=== PATIENT | female | born 1930 | race Caucasian/White ===

== ENCOUNTER 2016-11-09 04:16 | Inpatient (IN) | payer OTHER ==
[~2016-11-09] VITALS: Ht 157.5 cm; Wt 64.4 kg
[2016-11-09] VITALS (18 sets, daily range): BP systolic 111–164; BP diastolic 54–79
--- NOTE | ~2016-11-09 | S ---
[facility] [place] [address] SURGICAL PATH RPT PROCEDURE Name: ERICKA MIRANDA Room #: 203-P DIS IN M.R.#: [id number] Admission: 11/09/16 Date of : 34 Discharge: 11/15/16 Report #: [id number] Path Case #: [id number] PATHOLOGY REPORT COLLECTION DATE: 11/12/2016 RECEIVED DATE: 11/16/2016 SUBMITTING PHYS: Dr. Najma Baum OTHER PHYS: Dr. Marylou Mays SPECIMEN(S) RECEIVED: A.Peripheral smear * * * * * * * * * * * * FINAL DIAGNOSIS: Peripheral blood smear: - Moderate normocytic anemia and mild thrombocytopenia (see comment). COMMENT: Overall the peripheral blood has moderate normocytic anemia and mild thrombocytopenia. The WBC and differential are within the normal reference ranges. The etiology of the findings is unclear based entirely on slide review. Potential causes of normocytic anemia include anemia of chronic disease, treated and/or compensated vitamin and mineral deficiencies, acute blood loss, and dilutional. Potential caused of thrombocytopenia include immune and nonimmune platelet destruction, drug and/or toxic exposures, acute blood loos and primary bone marrow disorders. Correlation with clinical history and additional laboratory data is recommended. (CLW:all; d/t: 11/16-02/2017) PATHOLOGIST: Luz Alvarez M.D. REPORT ELECTRONICALLY SIGNED BY: Luz Alvarez M.D. DATE/TIME: 11/17/2016 08:38 * * * * * * * * * * * * MICROSCOPIC DESCRIPTION: CBC Data (11/12/16): WBC 6,500/uL, RBC 2.82, Hgb 9.0 g/dL, Hct 26.3%, MCV 93.2 fl, MCH 31.7 pg, MCHC 34.0 g/dL, RDW 14.8%, and platelet count 107 K/uL. [facility] [address] [place] [address] SURGICAL PATH RPT PROCEDURE Name: ERICKA MIRANDA Room #: 203-P [facility] IN R.#: [id number] Admission: 11/09/16 Date of : 32 Discharge: 11/15/16 Report #: [id number] Path Case #: [id number] Automated white white blood cell differential: segs 74.5%, ymphs 16.1%, monos 7.8%, eos 1.1%, and baso 0.5%. Peripheral Blood Smear: Cytomorphological examination of the Lee's stained peripheral blood smear confirms the provided data. Red blood cells show moderate normocytic anemia with no significant anisopoikilocytosis. No schistocytes or microspherocytes are seen. White blood cells are predominantly segmented neutrophils and are without significant dyspoiesis or significant left shift. Occasional hypersegmented neutrophils are noted. Lymphocytes are predominantly small, round and mature appearing with condensed chromatin and scant cytoplasm and admixed large granular lymphocytes. Monocytes are mature. Platelets are adequate (mildly decreased) in number and mainly normal in morphology with rare larger platelets noted. CLINICAL HISTORY: 86-year-old woman with anemia and thrombocytopenia. Morphologic review of the peripheral blood smear is requested by the patient's physician. INITIAL CPT CODE(S): A; [place] Professional services performed by [employer] at [facility], [address] [place] [address]. Technical services performed by [employer] at [address] [place] [address], [address], [place] [address]. [facility] [address] [place] [address] PHONE: [phone] DIRECTOR: Pramod Maynard M.D. * * * END OF REPORT * * *
--- NOTE | ~2016-11-09 | HC ---
[facility] [place] [address] CONSULTATION Name: ERICKA MIRANDA Room #: 203-P ADM IN M.R.#: [id number] Admission: 11/09/16 Attend Phys: George Cavazos MD Discharge: Date of : 32 Report #: [id number] THIS REPORT FOR: //name// CC: NOHEMI physician/PCP George Cavazos DATE OF ADMISSION: 11/09/2016 DATE OF CONSULTATION: 11/10/2016 REASON FOR CONSULTATION: Renal insufficiency and respiratory distress in this diabetic patient post-myocardial infarction. HISTORY OF PRESENT ILLNESS: This 86-year-old female has a longstanding history of diabetes mellitus and hypertension. She has known chronic kidney disease with a baseline creatinine in the upper 1 range. She was transferred from [facility] after developing acute chest pain with findings of myocardial infarction. She was taken emergently to the catheterization laboratory where she underwent percutaneous intervention with placement of a drug-eluting stent. Her cardiac function and respiratory issues improved significantly immediately following the procedure. She is seen in the CCU on BiPAP with limited inability to communicate due to ongoing respiratory distress. PAST MEDICAL HISTORY: Remarkable as described above for longstanding hypertension, diabetes mellitus and hypothyroidism. PAST SURGICAL HISTORY: She is status post cataract extraction. MEDICATIONS: On admission include lisinopril 20 mg daily, diltiazem extended release 300 mg daily, aspirin 81 mg daily, Actos 15 mg daily, Imdur 30 mg daily, methimazole 5 mg daily. PERSONAL AND SOCIAL HISTORY: The patient does not use substances and has never smoked. She does use occasional social alcohol. FAMILY HISTORY: Negative for renal disease. REVIEW OF SYSTEMS: Remarkable as described in the history of present illness for dyspnea at rest. She had chest pain. She denies nausea, vomiting, diarrhea or constipation. PHYSICAL EXAMINATION: GENERAL: Reveals a well-developed, well-nourished female who is in moderate respiratory distress at this time. VITAL SIGNS: Blood pressure 153/88, pulse 100, temperature 37.3. SKIN: Warm and dry. There is 1+ edema of the lower extremities bilaterally. There is no clubbing or cyanosis present. There is no adenopathy present. [facility] [address] [place] [address] CONSULTATION Name: ERICKA MIRANDA Room #: 203-P ADM IN M.R.#: [id number] Admission: 11/09/16 Attend Phys: George Cavazos MD Discharge: Date of : 32 Report #: [id number] HEENT: The head is normocephalic and atraumatic. The sclerae are white. There is full range of extraocular motion. NECK: Supple. LUNGS: Rai reveal coarse rhonchi and wheezes bilaterally. CARDIAC: Reveals a regular rate and rhythm without rub. ABDOMEN: Soft and nontender without palpable mass or organomegaly. NEUROLOGIC: Reveals the patient to be lethargic, but arousable. She communicates somewhat, but this is limited by her BiPAP status. DIAGNOSTIC STUDIES: Available at the time of consultation, sodium 136, potassium 4.7, chloride 100, CO2 23, BUN 34, creatinine 2.4, glucose 191, albumin 3.2. White blood cell count 9700, hemoglobin 10.5, hematocrit 32.1, platelet count 152,000. Urinalysis specific gravity 1.025, pH 5, 2+ protein, 3+ blood. A chest x-ray revealed bilateral pulmonary vascular congestion with interstitial pulmonary infiltrates consistent with interstitial pulmonary edema. ASSESSMENT: 1. Acute kidney injury in the setting of longstanding diabetes mellitus and underlying chronic kidney disease. 2. Acute respiratory distress with pulmonary edema in the setting of myocardial infarction. 3. Coronary artery disease status post percutaneous intervention with stent placement. 4. Hypertension. 5. Anemia. PLAN: The patient is very ill at this time. I will initiate a Lasix drip. We will follow her closely in view of the required contrast administration in the setting of significant underlying diabetic nephropathy. She may progress to needing dialysis support transiently to get her through this acute event. Please see orders. <ELECTRONICALLY SIGNED> By: Kyle Garcia MD 11/11/16 1349 0811 1045 Kyle Garcia MD /nt
--- NOTE | ~2016-11-09 | H ---
[facility] [place] [address] HISTORY AND PHYSICAL Name: ERICKA MIRANDA Room #: 203-P [facility] IN M.R.#: [id number] Admission: 11/09/16 Attend Phys: George Cavazos MD Discharge: 11/15/16 Date of : 32 Report #: [id number] THIS REPORT FOR: //name// CC: NOHEMI physician/PCP Jignesh Greene DATE OF SERVICE: 11/09/2016 HISTORY OF PRESENT ILLNESS: An 86-year-old female transferred here from [facility]. She apparently went in there with some progressive dyspnea and shortness of breath. She lives independently in a senior center. It looks like she does not have documented cardiac history but does have a history of hypertension and hypercholesterolemia. This is somewhat of an emergency, I am not able to obtain a lot of records here having progressive shortness of breath, tachycardia and borderline hypotension. We are going to proceed emergently to the catheterization lab, some equivocal EKG changes. LABORATORY DATA: From [facility], H and H is 11 and 34, creatinine is 2.0, INR is 0.9. Chest x-ray shows evidence of heart failure, potassium 4.4, creatinine 2.0, BUN 23, troponin 1.08, which is positive. BNP was 1863. Lipase was normal. HOME MEDICATIONS: Baby aspirin, diltiazem 300 mg, isosorbide dinitrate 5 mg b.i.d., Zestril 40 mg, methimazole, metformin, pioglitazone, Actos, metformin combination 15-850 once a day. PAST MEDICAL HISTORY: Positive for hypertension, suspected hypercholesterolemia, diabetes and DJD. PAST SURGICAL HISTORY: Cholecystectomy and possible . SOCIAL HISTORY: She is , 2 children, lives independently. No alcohol or tobacco. FAMILY HISTORY: Not obtainable at this point. REVIEW OF SYSTEMS: Really not obtainable except for the progressive shortness of breath and dyspnea. PHYSICAL EXAMINATION: VITAL SIGNS: Blood pressure initially was 140/62, pulse 100. GENERAL: She was complaining of chest pain, shortness of breath. 6L of oxygen was on. HEENT: Eyes show arcus senilis, no xanthoma, pharynx is clear. NECK: Shows preserved upstrokes. There was evidence of some mild JVD. LUNGS: , crackles in the bases, diminished throughout. [facility] [address] [place] [address] HISTORY AND PHYSICAL Name: ERICKA MIRANDA Room #: 203-P [facility] IN M.R.#: [id number] Admission: 11/09/16 Attend Phys: George Cavazos MD Discharge: 11/15/16 Date of : 32 Report #: [id number] CARDIOVASCULAR: Tachycardic S1, S2 distant. ABDOMEN: Soft, nontender. EXTREMITIES: Reveal trace of edema. Distal pulses intact. NEUROLOGIC: Nonfocal. SKIN: Warm and dry without xanthoma or ulcer. MUSCULOSKELETAL: No gross joint deformity, generalized arthritic changes are noted. ASSESSMENT: 1. Acute onset dyspnea, shortness of breath, non-ST elevation myocardial infarction. 2. Suspected ischemic cardiomyopathy. 3. Hypertension. 4. Diabetes. 5. Hypercholesterolemia. 6. Degenerative joint disease. RECOMMENDATIONS AND PLAN: IV Lasix, O2 supplement, taken emergent to the catheterization lab for intervention, this has been discussed with the patient, there is no family otherwise currently present. We will discuss with them in addition. <ELECTRONICALLY SIGNED> By: Tha Zapata MD, FACC 11/24/16 0936 0827 1021 Tha Zapata MD, FACC /nt
--- NOTE | ~2016-11-09 | EKG ---
[address] [address] ELECTROCARDIOGRAM REPORT Name: RUBENERICKA Room #: 203-P ADM IN M.R.#: [id number] Admission: 11/09/16 Attend Phys: George Cavazos MD Discharge: Date of : 32 Report #: [id number] THIS REPORT FOR: //name// [facility] Test Date: 2016-11-09 Test Time: 06:29:13 Pat Name: ERICKA MIRANDA Department: Room: 203 P Gender: F Site Supervisor: . : 1930 Requested By: Marylou Grimaldo Order Number: [id number] MD: Wolf Gaines Measurements Intervals [place] Rate: 101 P: 130 UT: 221 QRS: 1 QRSD: 112 T: 9 QT: 355 QTc: 461 Interpretive Statements Sinus tachycardia Prolonged UT interval Probable anterolateral infarct, acute No previous ECG available for comparison Electronically Signed On 11-11-2016 16:11:39 OPERATIONS RESEARCH MANAGER by Wolf Gaines [email or web address] <ELECTRONICALLY SIGNED> By: Wolf Gaines MD 11/11/16 1611 8 8 Wolf Gaines MD /MERVAT
--- NOTE | ~2016-11-09 | EKG ---
[address] [address] ELECTROCARDIOGRAM REPORT Name: RUBENERICKA Room #: 203-P ADM IN M.R.#: [id number] Admission: 11/09/16 Attend Phys: George Cavazos MD Discharge: Date of : 32 Report #: [id number] THIS REPORT FOR: //name// [facility] Test Date: 2016-11-09 Test Time: 12:46:44 Pat Name: ERICKA MIRANDA Department: Room: 203 P Gender: F Business Process Engineer: moriah : 1930 Requested By: Tha Zapata Order Number: [id number] MD: Wolf Gaines Measurements Intervals [place] Rate: 102 P: 87 HI: 213 QRS: 12 QRSD: 96 T: -2 QT: 338 QTc: 441 Interpretive Statements Sinus tachycardia Borderline prolonged HI interval No previous ECG available for comparison Electronically Signed On 11-12-2016 10:40:44 MOBILITY ENGINEER by Wolf Gaines [email or web address] <ELECTRONICALLY SIGNED> By: Wolf Gaines MD 11/12/16 1040 1246 1246 Wolf Gaines MD /MERVAT
--- NOTE | ~2016-11-09 | 2DMMODE ---
[facility] [place] [address] 2 D/M-MODE ECHOCARDIOGRAM Name: ERICKA MIRANDA Room #: 203-P [facility] IN ..#: [id number] Admission: 11/09/16 Attend Phys: Jignesh Greene MD Discharge: Date of : 32 Date of Service: 11/10/16 1232 Report #: [id number] THIS REPORT FOR: //name// Transthoracic Echocardiography Ordering physician: Zo Richter Referring physician: Zo Richter Student Liaison Officer: BRENDA Birmingham Indications/History: CHF, Dyspnea, HTN, HLP, DM. BP: 151 / HR: 98bpm Height: 62in Weight: 144.7lb 91 Study data: M-mode, complete 2D, complete spectral Doppler, and color Doppler. Location: Bedside. Routine. Image quality was good. 2D measurements Normal Normal LVID ED 49.9mm 36-57 IVS ED 12.8mm 6-11 LVID ES 42.4mm 23-40 LVPW ED 11.1mm 6-11 LA volume 93ml/m2 16-28 AoRoot diam 30.3mm 21-37 index ED LVOT diameter 18mm 18-23 Findings: Left ventricle: The cavity size was normal. Wall thickness was at the upper limits of normal. Systolic function was severely reduced. The estimated ejection fraction was in the range of 20% to 25%. Regional wall motion abnormalities: Akinesis of the apical myocardium; severe hypokinesis of the apical septal and apical lateral myocardium; hypokinesis of the mid-apical anterior, mid anteroseptal, mid inferoseptal, mid-apical inferior, mid inferolateral, and mid anterolateral myocardium. Right ventricle: The cavity size was normal. Systolic function was normal. Right atrium: The atrium was dilated. Left atrium: The atrium was dilated. Volume index: 93ml/m2 [facility] [address] [place] [address] 2 D/M-MODE ECHOCARDIOGRAM Name: ERICKA MIRANDA Room #: 203-P ADM IN Jojo#: [id number] Admission: 11/09/16 Attend Phys: Jignesh Greene MD Discharge: Date of : 32 Date of Service: 11/10/16 1232 Report #: [id number] (S). Aortic valve: Trileaflet; mildly thickened, mildly calcified leaflets. Doppler: There was no stenosis. Trivial regurgitation. Peak velocity: 103.7cm/s (S). Mitral valve: Mildly calcified annulus. Doppler: There was no evidence for stenosis. Mild to moderate regurgitation. Peak E-wave velocity: 124.7cm/s. Peak gradient: 6.2mm Hg (D). Peak A-wave velocity: 117.1cm/s. Tricuspid valve: Structurally normal valve. Doppler: There was no evidence for stenosis. Mild regurgitation. Regurgitant peak velocity: 313.7cm/s. Peak RV-RA gradient: 39mm Hg (S). Pulmonic valve: Structurally normal valve. Doppler: There was no evidence for stenosis. No regurgitation. Pericardium: There was no pericardial effusion. Aorta: Aortic root: The aortic root was normal in size. Pulmonary artery: Systolic pressure was estimated to be 49mm Hg. Diastolic function: The study is not technically sufficient to allow evaluation of LV diastolic function. Systemic veins: Inferior vena cava: The vessel was dilated; the respirophasic diameter changes were blunted (< 50%). Conclusions 1. Left ventricle: Systolic function was severely reduced. The estimated ejection fraction was in the range of 20% to 25%. 2. Regional wall motion abnormality: Akinesis of the apical myocardium; severe hypokinesis of the apical septal and apical lateral myocardium; hypokinesis of the mid-apical anterior, mid anteroseptal, mid inferoseptal, mid-apical inferior, mid inferolateral, and mid anterolateral myocardium. 3. Right atrium: The atrium was dilated. 4. Left atrium: The atrium was dilated. 5. Aortic valve: Trileaflet; mildly thickened, mildly calcified leaflets. Trivial regurgitation. 6. Mitral valve: Mildly calcified annulus. Mild to moderate regurgitation. 7. Tricuspid valve: Mild regurgitation. 8. Pulmonary arteries: Systolic pressure was estimated to be 49mm Hg. [facility] [address] [place] [address] 2 D/M-MODE ECHOCARDIOGRAM Name: ERICKA MIRANDA Room #: 203-P [facility] IN .R.#: [id number] Admission: 11/09/16 Attend Phys: Jignesh Greene MD Discharge: Date of : 32 Date of Service: 11/10/16 1232 Report #: [id number] 9. Inferior vena cava: The vessel was dilated; the respirophasic diameter changes were blunted (< 50%). <ELECTRONICALLY SIGNED> By: Narciso Arias MD 11/10/16 1531 1232 1531 Narciso Arias MD /edwin
--- NOTE | ~2016-11-09 | CATHLAB ---
[facility] [address] [place] [address] INVASIVE PROCEDURE REPORT Name: ERICKA MIRANDA Room #: 203-P [facility] IN M.R.#: [id number] Admission: 11/09/16 Attend Phys: Katlyn Hobbs Discharge: 11/15/16 Date of : 32 Date of Service: 11/09/16 0832 Report #: [id number] THIS REPORT FOR: //name// CC: NOHEMI physician/PCP Jignesh Greene PROCEDURES: Left ventriculography, coronary angiography, PTCA stent of OM, attempted RCA PTCA aborted. DESCRIPTION OF PROCEDURE: The patient brought to the catheterization lab in acute dyspnea, shortness of breath. The right groin was prepped and draped in a sterile manner, non-STEMI. A 6-Belarusian sheath in the right femoral artery. Straight pigtail catheter from a single [place] ventriculogram. FL4 left coronary system, FR4 right coronary system, multiple views and obliques were taken. The culprit here was a large second OM branch, which was subtotally occluded with slightly slow flow. Significant calcification noted throughout coronary tree. Moderate LAD disease, mild left main disease, the ostial right has an at least 60-70% ostial lesion and a mid vessel focal high grade calcified lesion in the dominant vessel, although this does not appear to be the culprit. I utilized the 3.5 EBU guide and 1.4 loose wire, 2.5 balloon initially with some difficulty I was able to cross that circumflex OM and dilate this subtotaled segment and then the area proximal to that. I then exchanged over the wired magnet for a 2.5, had some wiring difficulties. A 2.5 x 12 Resolute drug-eluting stent, which had some difficulty delivering, but eventually was able to deliver with replacement rewiring of the system. Heparin and Integrilin boluses were given relatively low dose of both. She markedly improved after the dilatation of the circumflex OM. I then deployed that stent up to 2.8 mm in size, yielding 0% residual and GÉNESIS grade 3 flow. I elected to at least evaluate this right coronary artery lesion. JR4 guide, 1.4 loose, with difficulty, I was able to wire, but not even able to deliver a 2.0 balloon across the mid vessel subtotaled segment. There is a mid to inferior apical hypokinetic segment; I am not sure how acute this is, but she is markedly improved with dilatation of the circumflex, so I am going to abort this at this point. Also tried to conserve her renal function with her creatinine of 2. We will come back to address this at a later date if necessarily. Heart rate is improved and hemodynamics have improved. She is pain free at this time. Vascular sheath was securely removed in the holding area. HEMODYNAMICS: Aortic 156/70, LV 160/18. IMPRESSION: 1. Successful percutaneous transluminal coronary angioplasty stent of the culprit vessel which was a high grade subtotaled large circumflex obtuse marginal 2 vessel, proximal placement of a 2.5 x 14 Resolute drug-eluting stent to 2.75 to 2.8 mm GÉNESIS grade 3 flow. 2. Mild left main disease. 3. Moderate left anterior descending artery disease calcified. [facility] [address] [place] [address] INVASIVE PROCEDURE REPORT Name: ERICKA MIRANDA Room #: 203-P DIS IN M.R.#: [id number] Admission: 11/09/16 Attend Phys: Katlyn Hobbs Discharge: 11/15/16 Date of : 32 Date of Service: 11/09/16 0832 Report #: [id number] 4. Dominant right with an ostial lesion of 70% and a midvessel lesion, which is high grade and a high grade calcified, very focal area of calcium, may potentially; this is a dominant vessel, may address at a later date she clinically improves. 5. Normal left ventricular size with anterior apical and mid to inferior apical wall hypokinesis, EF 40-45%. RECOMMENDATIONS: We will continue aggressive risk factor modification, dual antiplatelet therapy, remove the vascular sheath in the holding area, and in the CCU she is improved, but still guarded condition here, we will discuss with the family. <ELECTRONICALLY SIGNED> By: Tha Zapata MD, FACC 11/24/16 0935 0832 53 Tha Zapata MD, FACC /nt
--- NOTE | ~2016-11-09 | EKG ---
[address] [address] ELECTROCARDIOGRAM REPORT Name: RUBENERICKA Room #: 203-P ADM IN M.R.#: [id number] Admission: 11/09/16 Attend Phys: George Cavazos MD Discharge: Date of : 32 Report #: [id number] THIS REPORT FOR: //name// [facility] Test Date: 2016-11-09 Test Time: 22:31:59 Pat Name: ERICKA MIRANDA Department: Room: 203 P Gender: F Registered Nurse Post Partum: . : 1930 Requested By: Tha Zapata Order Number: [id number] MD: Wolf Gaines Measurements Intervals [place] Rate: 94 P: 70 TX: 208 QRS: 48 QRSD: 106 T: -43 QT: 383 QTc: 479 Interpretive Statements Sinus rhythm Borderline prolonged [place] interval Electronically Signed On 11-12-2016 10:46:52 ICING MIXER by Wolf Gaines [email or web address] <ELECTRONICALLY SIGNED> By: Wolf Gaines MD 11/12/16 1046 2231 2231 Wolf Gaines MD /MERVAT
[2016-11-09] MEDS ORDERED: DILTIAZEM ER300 M1 PO (05:06)
[2016-11-09] MEDS ORDERED: LISINOPRIL20 MG PO (05:06)
[2016-11-09] MEDS ORDERED: ASPIR 8181 MG PO (05:07)
[2016-11-09] MEDS ORDERED: PIOGLITAZONE15 MG (05:08)
[2016-11-09] MEDS ORDERED: IMDUR 30 MG TAB30 M1 PO (05:10)
[2016-11-09] MEDS ORDERED: METHIMAZOLE5 MG PO (05:11)
[2016-11-09 12:58] LABS: CALCIUM 9.5 mg/dL (8.5-10.1); CREATININE 2.1 mg/dL (0.6-1.3)
[2016-11-09 13:00] LABS: TROPONIN-I 15.6 ng/mL (<0.04-0.07)
[2016-11-09 13:31] LABS: ABG SAMPLE TYPE ARTERIAL; BE(vivo) -1.2 mmol/L (-2 to +3); HCO3 24.8 mmol/L (22.0-26.0); LACTATE 1.76 mmol/L (0.5-2.0); O2(CT) 14.2 mL/dL (15.0-23.0); O2Hb 95.5 % (92.0-98.0); PCO2 47.3 mmHg (35.0-45.0); PO2 85.1 mmHg (80.0-100.0); pH 7.338 (7.360-7.450); sO2 95.8 % (92.0-98.0); tCO2 26.3 mmol/L (24.0-30.0)
[2016-11-09 13:32] LABS: STICK SITE L.RADIAL
[2016-11-09 22:42] LABS: ABG SAMPLE TYPE ARTERIAL; BE(vivo) -8.7 mmol/L (-2 to +3); HCO3 22.4 mmol/L (22.0-26.0); LACTATE 2.43 mmol/L (0.5-2.0); O2(CT) 14.4 mL/dL (15.0-23.0); O2Hb 89.3 % (92.0-98.0); PCO2 79.9 mmHg (35.0-45.0); PO2 75.5 mmHg (80.0-100.0); STICK SITE L.BRACHIAL; pH 7.066 (7.360-7.450); sO2 87.9 % (92.0-98.0); tCO2 24.9 mmol/L (24.0-30.0)
[2016-11-09 23:44] LABS: ABG SAMPLE TYPE ARTERIAL; BE(vivo) -6.8 mmol/L (-2 to +3); HCO3 20.8 mmol/L (22.0-26.0); LACTATE 4.19 mmol/L (0.5-2.0); O2(CT) 13.8 mL/dL (15.0-23.0); PCO2 51.4 mmHg (35.0-45.0); PO2 70.5 mmHg (80.0-100.0); pH 7.226 (7.360-7.450); sO2 90.8 % (92.0-98.0); tCO2 22.4 mmol/L (24.0-30.0)
[2016-11-09 23:45] LABS: Pressure Support 10 cm H20; STICK SITE L.BRACHIAL
[2016-11-10 01:13] VITALS: BP 128/76
[2016-11-10 01:54] LABS: HEMATOCRIT 32.1 % (37.0-47.0); HEMOGLOBIN 10.5 gm/dL (12.0-15.0); MCH 31.7 pg (26.0-34.0); MCHC 32.8 % (28.0-37.0); MCV 96.6 fL (80.0-100.0); PLATELET COUNT 152 thou/uL (150-400); RBC 3.32 mil/uL (4.20-5.00); WBC 9.7 thou/uL (4.0-11.0)
[2016-11-10 01:58] LABS: MANUAL DIFF YES
[2016-11-10 02:16] LABS: ALBUMIN 3.2 g/dL (3.4-5.0); CALCIUM 9.2 mg/dL (8.5-10.1); CREATININE 2.4 mg/dL (0.6-1.3); POTASSIUM 4.7 mmol/L (3.5-5.1); TOTAL BILIRUBIN 0.3 mg/dL (<0.1-1.0); TOTAL PROTEIN 6.7 g/dL (6.4-8.2); TROPONIN-I 25.71 ng/mL (<0.04-0.07)
[2016-11-10 02:37] LABS: ABSOLUTE NEUTROPHILS 9.1 thou/uL (1.4-8.2); TOTAL CELL COUNT 100
[2016-11-10 03:47] VITALS: BP 141/81
[2016-11-10 07:18] VITALS: BP 153/88
[2016-11-10 09:51] LABS: URINE BILIRUBIN NEGATIVE (Negative); URINE BLOOD 3+ (Negative); URINE COLOR YELLOW; URINE GLUCOSE-RANDOM* NEGATIVE (Negative); URINE KETONES NEGATIVE (Negative); URINE NITRITE NEGATIVE (Negative); URINE PROTEIN (DIPSTICK) 2+ (Negative); URINE SPECIFIC GRAVITY 1.025 (1.003-1.035); URINE UROBILINOGEN 0.2 E.U./dl (0.2-1.0)
[2016-11-10 09:59] LABS: BACTERIA None Seen /HPF (None Seen); HYALINE CASTS 0-3 Few /LPF (None Seen); SQUAMOUS 0-3 Few /LPF (0-3); URINE WBC 0-5 Rare /HPF (0-5)
[2016-11-10 10:00] LABS: CRYSTALS None Seen /LPF (None Seen)
[2016-11-10 11:33] VITALS: BP 151/91
[2016-11-10 12:00] LABS: ABG SAMPLE TYPE ARTERIAL; BE(vivo) -1.9 mmol/L (-2 to +3); HCO3 23.1 mmol/L (22.0-26.0); LACTATE 1.44 mmol/L (0.5-2.0); O2(CT) 15.2 mL/dL (15.0-23.0); O2Hb 97.7 % (92.0-98.0); PCO2 40.2 mmHg (35.0-45.0); PO2 122.5 mmHg (80.0-100.0); pH 7.377 (7.360-7.450); sO2 98.4 % (92.0-98.0); tCO2 24.3 mmol/L (24.0-30.0)
[2016-11-10 12:01] LABS: Pressure Support 16 cm H20; STICK SITE R.BRACHIAL
[2016-11-10 16:45] VITALS: BP 151/89
[2016-11-10 19:40] VITALS: BP 119/67
[2016-11-10 23:08] LABS: URINE PROTEIN-RANDOM* 102.9 mg/dL (Not Estab.)
[2016-11-11 03:07] VITALS: BP 135/71
[2016-11-11 03:42] LABS: ABSOLUTE NEUTROPHILS 10.3 thou/uL (1.4-8.2); BASOPHILS 0.3 % (0.0-2.0); HEMATOCRIT 28.7 % (37.0-47.0); HEMOGLOBIN 9.7 gm/dL (12.0-15.0); LYMPHOCYTES 10.4 % (24.0-44.0); MCH 31.4 pg (26.0-34.0); MCHC 33.6 % (28.0-37.0); MCV 93.3 fL (80.0-100.0); MONOCYTES 7.6 % (1.0-8.0); PLATELET COUNT 120 thou/uL (150-400); POLYS 81.7 % (36.0-66.0); RBC 3.08 mil/uL (4.20-5.00); WBC 12.6 thou/uL (4.0-11.0)
[2016-11-11 04:07] LABS: ALBUMIN 2.9 g/dL (3.4-5.0); CALCIUM 8.9 mg/dL (8.5-10.1); CREATININE 2.8 mg/dL (0.6-1.3); POTASSIUM 4.9 mmol/L (3.5-5.1); TOTAL BILIRUBIN 0.3 mg/dL (<0.1-1.0)
[2016-11-11 04:51] LABS: MANUAL DIFF NO
[2016-11-11 06:13] LABS: LARGE PLATELETS FEW
[2016-11-11 06:14] LABS: ANISOCYTOSIS 1+
[2016-11-11 07:40] VITALS: BP 143/81
[2016-11-11 11:49] VITALS: BP 121/63
[2016-11-11 16:42] VITALS: BP 135/68
[2016-11-11 19:33] VITALS: BP 88/47
[2016-11-11 23:19] VITALS: BP 95/50
[2016-11-12 02:16] VITALS: BP 110/63
[2016-11-12 05:03] LABS: HEMATOCRIT 25.5 % (37.0-47.0); HEMOGLOBIN 8.5 gm/dL (12.0-15.0); MCH 31.7 pg (26.0-34.0); MCHC 33.4 % (28.0-37.0); RBC 2.68 mil/uL (4.20-5.00); RDW 14.9 % (10.5-14.5); WBC 7.8 thou/uL (4.0-11.0)
[2016-11-12 05:20] LABS: ALBUMIN 2.5 g/dL (3.4-5.0); CREATININE 2.7 mg/dL (0.6-1.3); PHOSPHORUS 4.3 mg/dL (2.5-4.9)
[2016-11-12 05:22] LABS: POTASSIUM 3.8 mmol/L (3.5-5.1)
[2016-11-12 07:37] VITALS: BP 120/60
[2016-11-12 10:54] VITALS: BP 102/52
[2016-11-12 15:04] VITALS: BP 102/52
[2016-11-12 17:14] VITALS: BP 119/55
[2016-11-12 18:16] LABS: APTT 25.7 Seconds (24.5-32.8); INR 1.1; PROTIME 11.2 Seconds (9.3-11.4)
[2016-11-12 19:50] VITALS: BP 111/51
[2016-11-13 04:07] VITALS: BP 107/57
[2016-11-13 06:35] LABS: ABSOLUTE NEUTROPHILS 5.3 thou/uL (1.4-8.2); BASOPHILS 0.3 % (0.0-2.0); EOSINOPHILS 1.8 % (0.0-3.0); HEMATOCRIT 26.6 % (37.0-47.0); LYMPHOCYTES 15.1 % (24.0-44.0); MANUAL DIFF NO; MCH 31.5 pg (26.0-34.0); MCHC 33.8 % (28.0-37.0); MCV 93.4 fL (80.0-100.0); MONOCYTES 7.3 % (1.0-8.0); PLATELET COUNT 115 thou/uL (150-400); POLYS 75.5 % (36.0-66.0); RBC 2.85 mil/uL (4.20-5.00); RDW 14.8 % (10.5-14.5)
[2016-11-13 06:44] LABS: CREATININE 2.6 mg/dL (0.6-1.3); POTASSIUM 3.8 mmol/L (3.5-5.1)
[2016-11-13 07:25] VITALS: BP 136/64
[2016-11-13 11:06] LABS: % SATURATION 13 % (15-55); IRON 32 ug/dL (27-139); TIBC 244 ug/dL (250-450); UIBC 212 ug/dL (118-369)
[2016-11-13 12:08] LABS: TSH 4.19 uIU/mL (0.450-4.500)
[2016-11-13 12:40] VITALS: BP 119/58
[2016-11-13 13:10] LABS: FOLIC ACID 9.3 ng/mL (>3.0)
[2016-11-13 16:23] VITALS: BP 141/66
[2016-11-13 20:08] VITALS: BP 158/64
[2016-11-14 03:08] VITALS: BP 149/65
[2016-11-14 04:06] LABS: ABSOLUTE NEUTROPHILS 4.4 thou/uL (1.4-8.2); BASOPHILS 0.2 % (0.0-2.0); EOSINOPHILS 2.9 % (0.0-3.0); HEMATOCRIT 26.8 % (37.0-47.0); MCH 31.7 pg (26.0-34.0); MCHC 33.5 % (28.0-37.0); MCV 94.5 fL (80.0-100.0); MONOCYTES 8.1 % (1.0-8.0); PLATELET COUNT 121 thou/uL (150-400); POLYS 70.8 % (36.0-66.0); RBC 2.84 mil/uL (4.20-5.00); RDW 14.8 % (10.5-14.5); WBC 6.2 thou/uL (4.0-11.0)
[2016-11-14 04:16] LABS: MANUAL DIFF NO
[2016-11-14 05:28] LABS: ALBUMIN 2.6 g/dL (3.4-5.0); CALCIUM 8.1 mg/dL (8.5-10.1); CREATININE 2.3 mg/dL (0.6-1.3); TOTAL BILIRUBIN 0.3 mg/dL (<0.1-1.0); TOTAL PROTEIN 5.5 g/dL (6.4-8.2)
[2016-11-14 12:08] VITALS: BP 151/69
[2016-11-14 19:40] VITALS: BP 144/78
[2016-11-15 03:15] LABS: ALBUMIN 2.6 g/dL (3.4-5.0); CALCIUM 8.6 mg/dL (8.5-10.1); CREATININE 1.9 mg/dL (0.6-1.3); POTASSIUM 4.4 mmol/L (3.5-5.1)
[2016-11-15 04:30] VITALS: BP 153/69
[2016-11-15 07:40] VITALS: BP 174/78
[2016-11-15] MEDS ORDERED: AUGMENTIN 500-1 EACH PO (08:45)
[2016-11-15] MEDS ORDERED: CLOPIDOGREL75 MG PO (08:45)
[2016-11-15] MEDS ORDERED: CARVEDILOL3.125 MG PO (08:46)
[2016-11-15] MEDS ORDERED: ATORVASTATIN CA40 MG PO (08:46)
[2016-11-15] MEDS ORDERED: LISINOPRIL2.5 MG PO (08:47)
[2016-11-15 08:59] VITALS: BP 102/52
[2016-11-15 13:02] VITALS: BP 102/52
[2016-11-16 14:07] LABS: KAPPA FREE LIGHT CHAINS 22.13 mg/L (3.30-19.40); KAPPA/LAMBDA RATIO 1.89 (0.26-1.65); LAMBDA FREE LIGHT CHAINS 11.74 mg/L (5.71-26.30)
[2016-11-16 16:11] LABS: c-ANCA <1:20 titer (Neg:<1:20); p-ANCA <1:20 titer (Neg:<1:20)
== END 2016-11-15 10:58 | disposition home health service (06) | DRG 246 ==
LOC: 2N 04:16
PROVIDERS: Hospitalist; Internal Medicine; Internal Medicine Cardiovascular Disease; Internal Medicine Hematology & Oncology; Internal Medicine Nephrology; Internal Medicine Pulmonary Disease; Nurse Practitioner; Nurse Practitioner Adult Health; Nurse Practitioner Family
PROC: B2151ZZ Fluoroscopy of Left Heart using Low Osmolar Contrast (ICD-10-PCS; principal; 2016-11-09)
PROC: 027035Z Dilation of Coronary Artery, One Artery with Two Drug-eluting Intraluminal Devices, Percutaneous Approach (ICD-10-PCS; 2016-11-09)
PROC: 4A023N7 Measurement of Cardiac Sampling and Pressure, Left Heart, Percutaneous Approach (ICD-10-PCS; 2016-11-09)
PROC: 5A09457 Assistance with Respiratory Ventilation, 24-96 Consecutive Hours, Continuous Positive Airway Pressure (ICD-10-PCS; 2016-11-11)
DX: I21.4 Non-ST elevation (NSTEMI) myocardial infarction (principal); J96.01 Acute respiratory failure with hypoxia; I50.41 Acute combined systolic (congestive) and diastolic (congestive) heart failure; J96.02 Acute respiratory failure with hypercapnia; N17.9 Acute kidney failure, unspecified; E03.9 Hypothyroidism, unspecified; D64.9 Anemia, unspecified; I25.10 Atherosclerotic heart disease of native coronary artery without angina pectoris; E78.00 Pure hypercholesterolemia, unspecified; M19.90 Unspecified osteoarthritis, unspecified site; I24.9 Acute ischemic heart disease, unspecified; I27.2 Other secondary pulmonary hypertension; E78.5 Hyperlipidemia, unspecified; E11.21 Type 2 diabetes mellitus with diabetic nephropathy; I12.9 Hypertensive chronic kidney disease with stage 1 through stage 4 chronic kidney disease, or unspecified chronic kidney disease; N18.9 Chronic kidney disease, unspecified; E11.22 Type 2 diabetes mellitus with diabetic chronic kidney disease; Z79.82 Long term (current) use of aspirin; Z90.49 Acquired absence of other specified parts of digestive tract; Z98.49 Cataract extraction status, unspecified eye; Z79.899 Other long term (current) drug therapy
CPT/HCPCS: 10081

== ENCOUNTER 2016-11-19 01:25 | Inpatient (IN) | payer OTHER ==
[2016-11-19] VITALS (7 sets, daily range): BP systolic 98–175; BP diastolic 45–73
[~2016-11-19] VITALS: Ht 157.5 cm; Wt 64.9 kg
--- NOTE | ~2016-11-19 | HC ---
[facility] [place] [address] CONSULTATION Name: ERICKA MIRANDA Room #: [facility] IN M.R.#: [id number] Admission: 11/19/16 Attend Phys: Remington Jalloh MD Discharge: 11/22/16 Date of : 34 Report #: [id number] THIS REPORT FOR: //name// CC: GILBERT Jalloh CARDIOLOGY CONSULTATION HISTORY OF PRESENT ILLNESS: An 86-year-old female, known to myself. Admitted with some progressive shortness of breath and dyspnea. She had a non-STEMI and taken to the catheterization lab back at the end of October, actually 2 weeks ago. Had a stent placed to a circumflex OM branch. There was a high-grade RCA, but it was extensively calcified and I did attempt quickly to limit the contrast to the right coronary artery. That had been probably present for quite some time and I could not cross that extensively large calcified rock pile in the mid vessel of the RCA. Believing that this played much of a role, she has been home on relatively aggressive fluid and sodium restriction, but apparently went home without a diuretic. The patient had been taking Coreg 3.125 b.i.d., baby aspirin, Plavix and lisinopril 2.5. She is accompanied by her daughter who has been keeping a close eye on her. She denies any chest pain. There are no EKG changes associated. She received IV Lasix in the emergency room. The chest x-ray does reveal atelectasis, possible right lower lobe pneumonia and increased vascularization. The EKG is sinus with PACs and nonspecific changes. The ejection fraction was 20%-25% last 2 weeks ago. I do not expect there has been much improvement there. The patient also had been on Imdur 30, methimazole 5, Actos 15 and a baby aspirin. Went home on Augmentin b.i.d. and I believe, those have run out. PAST MEDICAL HISTORY: Positive for CAD, ischemic cardiomyopathy, hypertension, COPD, DJD, hyperthyroidism, cholecystectomy, , chronic kidney disease and diabetes. ALLERGIES: No known drug allergies. SOCIAL HISTORY: She is . She is accompanied by her daughter. She is still trying to live independently. FAMILY HISTORY: Negative for premature coronary disease. REVIEW OF SYSTEMS: Essentially negative, except for stated above. LABORATORY DATA: Sodium 141, potassium 4.4 and creatinine 1.7. It is actually better than she left. Troponin is 0.56. This is not indicative of STEMI. This maybe well left over from what previously happened. BNP was 29,527. Hemoglobin 8.7, hematocrit 26.5 and white count 5.1. PHYSICAL EXAMINATION: [facility] [address] [place] [address] CONSULTATION Name: ERICKA MIRANDA Room #: 450-P [facility] IN M.R.#: [id number] Admission: 11/19/16 Attend Phys: Remington Jalloh MD Discharge: 11/22/16 Date of : 32 Report #: [id number] GENERAL: She is pleasant and alert. She is slightly hard of hearing. She is accompanied by her daughter. She is in no distress currently. VITAL SIGNS: Pulse 80s, blood pressure 140/64. HEENT: Eyes reveal no xanthelasmas or arcus senilis. Pharynx is clear. NECK: Shows preserved upstrokes. Trace of JVD is noted. LUNGS: Coarse, prolonged expiratory phase, diminished in the right base. CARDIAC EXAMINATION: Regular rate and rhythm, S1, S2. Distant heart tones. ABDOMEN: Soft and nontender. No rebound. EXTREMITIES: Reveal trace of edema, some mild venous stasis. NEUROLOGIC: Nonfocal. SKIN: Warm and dry, without xanthoma or ulcer. MUSCULOSKELETAL: Generalized arthritic changes. I did not ambulate her. ASSESSMENT: 1. Idoku-bz-otunquo systolic heart failure. 2. Moderately severe ischemic cardiomyopathy of 20%-25%. 3. Coronary artery disease with recent circumflex obtuse marginal stent and right coronary artery subtotally occluded and not amenable to intervention (currently pain-free). 4. Hypertension. 5. Hypercholesterolemia. 6. Chronic kidney disease. RECOMMENDATIONS AND PLAN: We will restart Coreg, lisinopril, aspirin, Plavix and Imdur 30. I will defer diabetic management to primary. I will also initiate 40 of IV Lasix b.i.d. A.m. lab. We will add 12.5 mg of Aldactone. I have discussed the plan with the patient and daughter. Obviously, fluid and sodium restriction will need to be even controlled here, but I would also make sure that we discharge her on a diuretic. We will follow with you. Thank you for asking me to assist in the care of this patient. <ELECTRONICALLY SIGNED> By: Tha Zapata MD, FACC 11/24/16 0936 [id number] Tha Zapata MD, FACC /nt
--- NOTE | ~2016-11-19 | EKG ---
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 : 1930 Requested By: Beba Yi Order Number: [id number] MD: Wolf Gaines Measurements Intervals [place] Rate: 93 P: 46 [place]: 179 QRS: 21 QRSD: 111 T: 164 QT: 358 QTc: 446 Interpretive Statements Sinus rhythm Atrial premature complex Probable left atrial enlargement LVH with secondary repolarization abnormality Anterior infarct, old Baseline wander in lead(s) V3,V6 Electronically Signed On 11-19-2016 8:28:14 FUEL CELL DESIGNER by Wolf Gaines [email or web address] <ELECTRONICALLY SIGNED> By: Wolf Gaines MD 11/19/16 0828 0133 0133 Wolf Gaines MD /EPI
[~2016-11-19 01:25] MED LIST: ASPIR 8181 MG PO; ATORVASTATIN CA40 MG PO; AUGMENTIN 500-1 EACH PO; CARVEDILOL3.125 MG PO; CLOPIDOGREL75 MG PO; DILTIAZEM ER300 M1 PO; IMDUR 30 MG TAB30 M1 PO; LISINOPRIL2.5 MG PO; LISINOPRIL20 MG PO; METHIMAZOLE5 MG PO; PIOGLITAZONE15 MG
[2016-11-19 03:26] LABS: ABG SAMPLE TYPE ARTERIAL; BE(vivo) 1.3 mmol/L (-2 to +3); HCO3 27.4 mmol/L (22.0-26.0); LACTATE 1.03 mmol/L (0.5-2.0); O2(CT) 12.7 mL/dL (15.0-23.0); O2Hb 94.1 % (92.0-98.0); PCO2 50.6 mmHg (35.0-45.0); PO2 77.2 mmHg (80.0-100.0); pH 7.351 (7.360-7.450); sO2 94.7 % (92.0-98.0); tCO2 28.9 mmol/L (24.0-30.0)
[2016-11-19 03:27] LABS: Pressure Support 8 cm H20; STICK SITE R.RADIAL
[2016-11-19 03:38] LABS: HEMATOCRIT 26.5 % (37.0-47.0); HEMOGLOBIN 8.7 gm/dL (12.0-15.0); MCH 31.1 pg (26.0-34.0); MCHC 32.7 % (28.0-37.0); MCV 94.9 fL (80.0-100.0); PLATELET COUNT 128 thou/uL (150-400); RBC 2.79 mil/uL (4.20-5.00); WBC 5.1 thou/uL (4.0-11.0)
[2016-11-19 03:39] LABS: CALCIUM 8.4 mg/dL (8.5-10.1); CREATININE 1.7 mg/dL (0.6-1.3); POTASSIUM 4.4 mmol/L (3.5-5.1)
[2016-11-19 03:41] LABS: MANUAL DIFF YES
[2016-11-19 03:54] LABS: TROPONIN-I 0.56 ng/mL (<0.04-0.07)
[2016-11-19 04:31] LABS: ABSOLUTE NEUTROPHILS 4.1 thou/uL (1.4-8.2); ANISOCYTOSIS SLIGHT; ATYPICAL LYMPHS 1 %; LARGE PLATELETS RARE; TOTAL CELL COUNT 100
[2016-11-20 03:10] VITALS: BP 154/51
[2016-11-20 04:41] LABS: HEMATOCRIT 23.8 % (37.0-47.0); HEMOGLOBIN 7.9 gm/dL (12.0-15.0); MCH 31.4 pg (26.0-34.0); MCHC 33.1 % (28.0-37.0); PLATELET COUNT 116 thou/uL (150-400); RBC 2.51 mil/uL (4.20-5.00); RDW 14.8 % (10.5-14.5)
[2016-11-20 04:44] LABS: ALBUMIN 2.4 g/dL (3.4-5.0); CALCIUM 8.3 mg/dL (8.5-10.1); CREATININE 1.8 mg/dL (0.6-1.3); POTASSIUM 4.2 mmol/L (3.5-5.1); TOTAL BILIRUBIN 0.5 mg/dL (<0.1-1.0); TOTAL PROTEIN 5.1 g/dL (6.4-8.2)
[2016-11-20 04:53] LABS: MANUAL DIFF YES
[2016-11-20 05:50] LABS: ABSOLUTE NEUTROPHILS 2.7 thou/uL (1.4-8.2); LARGE PLATELETS RARE; METAMYELOCYTES 1 %; TOTAL CELL COUNT 100
[2016-11-20 07:56] VITALS: BP 151/57
[2016-11-20 17:08] VITALS: BP 142/45
[2016-11-20 19:19] VITALS: BP 139/45
[2016-11-21 03:58] VITALS: BP 158/48
[2016-11-21 05:46] LABS: CALCIUM 8.5 mg/dL (8.5-10.1); CREATININE 1.7 mg/dL (0.6-1.3); POTASSIUM 3.7 mmol/L (3.5-5.1)
[2016-11-21 05:47] LABS: HEMATOCRIT 23.3 % (37.0-47.0); HEMOGLOBIN 7.9 gm/dL (12.0-15.0); MCH 31.6 pg (26.0-34.0); MCHC 34.1 % (28.0-37.0); MCV 92.7 fL (80.0-100.0); RBC 2.51 mil/uL (4.20-5.00); RDW 14.9 % (10.5-14.5)
[2016-11-21 07:43] VITALS: BP 145/50
[2016-11-21 11:50] VITALS: BP 142/40
[2016-11-21 16:23] VITALS: BP 157/54
[2016-11-21 20:00] VITALS: BP 146/48
[2016-11-22 04:00] VITALS: BP 162/51
[2016-11-22 07:26] LABS: ABSOLUTE NEUTROPHILS 3.4 thou/uL (1.4-8.2); BASOPHILS 0.6 % (0.0-2.0); EOSINOPHILS 1.7 % (0.0-3.0); HEMOGLOBIN 8.5 gm/dL (12.0-15.0); LYMPHOCYTES 24.7 % (24.0-44.0); MCH 31.2 pg (26.0-34.0); MCV 91.9 fL (80.0-100.0); MONOCYTES 11.1 % (1.0-8.0); PLATELET COUNT 136 thou/uL (150-400); POLYS 61.9 % (36.0-66.0); RBC 2.72 mil/uL (4.20-5.00); RDW 14.6 % (10.5-14.5); WBC 5.4 thou/uL (4.0-11.0)
[2016-11-22 07:28] LABS: MANUAL DIFF NO
[2016-11-22 07:44] LABS: ALBUMIN 2.6 g/dL (3.4-5.0); CALCIUM 8.4 mg/dL (8.5-10.1); CREATININE 1.6 mg/dL (0.6-1.3); POTASSIUM 3.7 mmol/L (3.5-5.1); TOTAL BILIRUBIN 0.3 mg/dL (<0.1-1.0); TOTAL PROTEIN 5.7 g/dL (6.4-8.2)
[2016-11-22 08:00] VITALS: BP 158/73
[2016-11-22] MEDS ORDERED: TAMIFLU30 MG PO (09:40)
[2016-11-22] MEDS ORDERED: ALDACTONE25 MG PO (09:40)
[2016-11-22 11:08] VITALS: BP 139/55
[2016-11-22 11:11] VITALS: BP 139/55
== END 2016-11-22 13:37 | disposition home health service (06) | DRG 291 ==
LOC: ER 01:25 → 4W 03:42 → EROBS 03:42 → 4W 05:30
PROVIDERS: Emergency Medicine; Family Medicine; Nurse Practitioner Family; Nurse Practitioner Gerontology
PROC: 5A09357 Assistance with Respiratory Ventilation, Less than 24 Consecutive Hours, Continuous Positive Airway Pressure (ICD-10-PCS; principal; 2016-11-19)
DX: I50.23 Acute on chronic systolic (congestive) heart failure (principal); J18.9 Pneumonia, unspecified organism; J96.01 Acute respiratory failure with hypoxia; J09.X1 Influenza due to identified novel influenza A virus with pneumonia; I13.0 Hypertensive heart and chronic kidney disease with heart failure and stage 1 through stage 4 chronic kidney disease, or unspecified chronic kidney disease; N17.9 Acute kidney failure, unspecified; N18.9 Chronic kidney disease, unspecified; E11.22 Type 2 diabetes mellitus with diabetic chronic kidney disease; J44.9 Chronic obstructive pulmonary disease, unspecified; I25.5 Ischemic cardiomyopathy; R35.8 Other polyuria; I25.10 Atherosclerotic heart disease of native coronary artery without angina pectoris; E78.5 Hyperlipidemia, unspecified; E05.90 Thyrotoxicosis, unspecified without thyrotoxic crisis or storm; E11.649 Type 2 diabetes mellitus with hypoglycemia without coma; M19.90 Unspecified osteoarthritis, unspecified site; E78.00 Pure hypercholesterolemia, unspecified; D64.9 Anemia, unspecified; Z98.49 Cataract extraction status, unspecified eye; Z79.899 Other long term (current) drug therapy; Z79.82 Long term (current) use of aspirin; Z95.5 Presence of coronary angioplasty implant and graft; I25.2 Old myocardial infarction; Z79.02 Long term (current) use of antithrombotics/antiplatelets; Z90.49 Acquired absence of other specified parts of digestive tract; Z79.2 Long term (current) use of antibiotics; Z82.49 Family history of ischemic heart disease and other diseases of the circulatory system
CPT/HCPCS: 10045

== ENCOUNTER 2021-01-21 06:27 | Inpatient (IN) | payer OTHER ==
[~2021-01-21] VITALS: Ht 157.5 cm; Wt 58.3 kg
[~2021-01-21 06:27] MED LIST changes: +ALDACTONE25 MG PO; +TAMIFLU30 MG PO
--- NOTE | 2021-01-21 09:41 | NUR ---
PT ORIENTED TO ROOM AND UNIT, BED LOW AND LOCKED, SIDE RAILS UPX3, CALL LIGHT IN REACH, TELE APPLIED AND DR. KRAUSE NOTIFIED. PT IN ENHANCED PRECAUTIONS. WILL CONTINUE TO ASSESS.
[2021-01-21] MEDS ORDERED: LISINOPRIL5 MG PO (10:44)
[2021-01-21] MEDS ORDERED: IMDUR 30 MG TAB30 M1 PO (10:47)
[2021-01-21 11:58] LABS: HEMATOCRIT 39.8 % (37.0-47.0); HEMOGLOBIN 12.7 gm/dL (12.0-15.0); MCH 31.5 pg (26.0-34.0); MCHC 31.9 g/dL (28.0-37.0); MCV 98.7 fL (80.0-100.0); RBC 4.03 mil/uL (4.20-5.00); RDW 15.2 % (10.5-14.5); WBC 10.2 thou/uL (4.0-11.0)
[2021-01-21 12:08] LABS: CALCIUM 9.6 mg/dL (8.5-10.1); CREATININE 3.6 mg/dL (0.6-1.0); POTASSIUM 5.6 mmol/L (3.5-5.1)
[2021-01-21 12:14] LABS: ALBUMIN 3.2 g/dL (3.4-5.0); TOTAL BILIRUBIN 0.4 mg/dL (0.2-1.0); TOTAL PROTEIN 7.2 g/dL (6.4-8.2)
--- NOTE | 2021-01-21 13:12 | NUR ---
ATTEMTED TO START SECOND IV BUT WAS NOT ABLE TO EASTABLISH. PAGE IV TEAM TO PLACE PERIPHERAL IV.
[2021-01-21 15:01] VITALS: BP 155/85
--- NOTE | 2021-01-21 16:56 | NUR ---
THAO I/D NURSE INSTRUCTD NO NEED TO OBTAIN ANOTHER PCR TEST.
--- NOTE | 2021-01-21 18:29 | NUR ---
PT RESTED IN BED WITH NO C/O PAIN. GAVE MEDICATION TO TREAT ELEVATED POTASSIUM. NEW IV STARTED BY IV TEAM RIGHT AC 20GAUGE.
--- NOTE | 2021-01-21 19:28 | NUR ---
SCDS ON BILAT.
[2021-01-21 20:10] VITALS: BP 129/60
[2021-01-21 20:51] LABS: CREATININE 3.5 mg/dL (0.6-1.0); POTASSIUM 4.9 mmol/L (3.5-5.1)
[2021-01-22 03:35] VITALS: BP 146/52
[2021-01-22 06:31] LABS: ALBUMIN 2.8 g/dL (3.4-5.0); CALCIUM 8.9 mg/dL (8.5-10.1); CREATININE 3.3 mg/dL (0.6-1.0); PHOSPHORUS 3.2 mg/dL (2.5-4.9); POTASSIUM 4.4 mmol/L (3.5-5.1)
[2021-01-22 08:22] VITALS: BP 154/127
--- NOTE | 2021-01-22 10:45 | NUR ---
LAB CALLED TO REPORT A POSITIVE COVID TEST
[2021-01-22 12:00] VITALS: BP 148/89
--- NOTE | 2021-01-22 13:57 | NUR ---
Patient admits from [facility] as transfer. Patient COVID positive in Enhanced Isolation. Attempted to call patient in room no answer. Patient admits with N/V, weakness. Sp with dtr who reports she cannot talk on phone or be contact manager for her mom at this time. She reports she is sick herself. She requested son be contact. Sp with son Juan Antonio [facility] . He learned today patient COVID positive. He questioned how she could have caught covid. He reports patient was living in independent apt but recently moved to live with sister. He reports all needs on one level in home. Patient has a walker for ambulation. Requested RN call son to update on patients care. RN encouraged son to sp with sister to get tested for COVID. Patient with hx of care in past. Therapy evals in process. casemgt following.
[2021-01-22 16:57] VITALS: BP 104/60
[2021-01-22 19:20] VITALS: BP 121/61
[2021-01-23 03:38] VITALS: BP 119/65
[2021-01-23 08:36] VITALS: BP 142/60
[2021-01-23 10:15] LABS: HEMATOCRIT 35.4 % (37.0-47.0); HEMOGLOBIN 11.8 gm/dL (12.0-15.0)
[2021-01-23 10:23] LABS: CALCIUM 9.2 mg/dL (8.5-10.1); CREATININE 2.1 mg/dL (0.6-1.0); POTASSIUM 4.5 mmol/L (3.5-5.1)
--- NOTE | 2021-01-23 11:04 | NUR ---
GIORGIO reviewed chart and spoke with nursing and attending physician. Pt remains in Enhanced Isolation due to COVID. Pt is afebrile and not requiring O2. Pt is on IV abx. No weekend discharge planned. Recommendation made for pt to discharge to SNF upon discharge. GIORGIO spoke with pt's son, Juan Antonio, via phone to discuss discharge plan. SNF options discussed. Pt and family live in [place], [place]. Pt's son states that [facility] is the closest facility. GIORGIO placed call to [facility] and spoke with Farideh in admissions. Confirmed they accept pt's insurance. [facility] requires pt be 14 days in isolation following first COVID positive test. GIORGIO faxed referral for review. GIORGIO is following to assist as needed with discharge planning. [facility]--
[2021-01-23 16:49] VITALS: BP 127/81
[2021-01-23 21:09] VITALS: BP 199/66
--- NOTE | 2021-01-23 22:14 | NUR ---
ASSESSMENT COMPLETED. PT ALERT AND ORIENTED WITH NEWTOK. HAD SOME DIFFICULTY SWALLOWING MEDS-NEEDS CLOSE SUPERVISION WITH ONE PILL AT A TIME.PT DENIES PAIN. SCDS IN PLACE, NO EDEMA. AFEBRILE. HS BP ELEVATED, TIMED IMDUR GIVEN, WILL RECHECK. NO SOA OR COUGH NOTED, SB ON TELEMETRY. NO FURTHER CONCERNS.
[2021-01-24 00:07] VITALS: BP 146/50
[2021-01-24 05:08] LABS: CALCIUM 8.7 mg/dL (8.5-10.1); CREATININE 1.7 mg/dL (0.6-1.0); POTASSIUM 4.7 mmol/L (3.5-5.1)
[2021-01-24 05:26] VITALS: BP 178/65
[2021-01-24 07:10] VITALS: BP 178/66
[2021-01-24 08:33] LABS: ABSOLUTE NEUTROPHILS 3.4 thou/uL (1.4-8.2); BASOPHILS 1.1 % (0.0-2.0); EOSINOPHILS 2.8 % (0.0-3.0); HEMATOCRIT 29.8 % (37.0-47.0); LYMPHOCYTES 33.3 % (24.0-44.0); MCH 31.7 pg (26.0-34.0); MCHC 32.7 g/dL (28.0-37.0); MCV 96.9 fL (80.0-100.0); MONOCYTES 8.5 % (1.0-8.0); PLATELET COUNT 122 thou/uL (150-400); POLYS 54.3 % (36.0-66.0); RBC 3.07 mil/uL (4.20-5.00); RDW 14.9 % (10.5-14.5); WBC 6.3 thou/uL (4.0-11.0)
[2021-01-24 08:40] LABS: HEMOGLOBIN 9.7 gm/dL (12.0-15.0)
[2021-01-24 11:00] VITALS: BP 126/59
[2021-01-24 15:02] VITALS: BP 127/57
--- NOTE | 2021-01-24 18:31 | NUR ---
PATIENT HAS RESTED IN ROOM THROUGH THE DAY. SHE DOES NOT SEEM TO BE IN PAIN. RESPIRATIONS ARE NON LABORED. PLEASANT WITH CARES. INCONT ON OF BOWEL AND BLADDER. KEPT CLEAN AND DRY. WILL CONT PLAN OF CARE.
[2021-01-24 19:16] VITALS: BP 163/59
--- NOTE | 2021-01-24 23:01 | NUR ---
PT ALERT AND ORIENTED X4. VSS AFEBRILE. NO C/O PAIN. NO SOA. NO BLEEDING NOTED. REPOSITIONING Q 2. BED DOWN CALL LIGHTIN REACH. NO S/S DISTRESS.
[2021-01-25 05:20] LABS: ABSOLUTE NEUTROPHILS 3.1 thou/uL (1.4-8.2); BASOPHILS 0.5 % (0.0-2.0); EOSINOPHILS 3.1 % (0.0-3.0); HEMATOCRIT 28.2 % (37.0-47.0); HEMOGLOBIN 9.3 gm/dL (12.0-15.0); LYMPHOCYTES 34.5 % (24.0-44.0); MCH 31.8 pg (26.0-34.0); MCV 96.2 fL (80.0-100.0); MONOCYTES 7.6 % (1.0-8.0); PLATELET COUNT 111 thou/uL (150-400); POLYS 54.3 % (36.0-66.0); RBC 2.93 mil/uL (4.20-5.00); RDW 14.3 % (10.5-14.5); WBC 5.7 thou/uL (4.0-11.0)
[2021-01-25 05:24] VITALS: BP 177/63
[2021-01-25 05:40] LABS: ALBUMIN 2.3 g/dL (3.4-5.0); CALCIUM 8.6 mg/dL (8.5-10.1); CREATININE 1.6 mg/dL (0.6-1.0); MAGNESIUM 1.2 mg/dL (1.8-2.4); PHOSPHORUS 2.2 mg/dL (2.6-4.7); POTASSIUM 4.1 mmol/L (3.5-5.1); TOTAL BILIRUBIN 0.4 mg/dL (0.2-1.0); TOTAL PROTEIN 5.1 g/dL (6.4-8.2)
--- NOTE | 2021-01-25 05:43 | NUR ---
PT RESTING WITHOUT C/O. NO S/S DISTRESS. PROGRESSING TOWARDS D/C GOALS.
[2021-01-25 07:16] VITALS: BP 159/65
[2021-01-25 15:14] VITALS: BP 141/56
[2021-01-25 19:22] VITALS: BP 145/54
--- NOTE | 2021-01-25 19:56 | NUR ---
PATIENT CONT TO BE PLEASANT WITH CARES. SHE WAS UP TO W/C THEN BACK TO BED. CONT TO BE INCONT OF BOWEL AND BLADDER. KEPT CLEAN AND DRY. WILL CONT WITH PLAN OF CARE.
--- NOTE | 2021-01-25 23:39 | NUR ---
PT ALERT AND ORIENTD X4. VSS AFEBRILE. UNLABORED ON RA. DENIED PAAIN. INC OF URINE. MOISTURE BARRIER APPLIED. BED DOWn. CALL LIGHT IN REACH. BED ALARM ON. NO S/S DISTRESS.
[2021-01-26 04:11] VITALS: BP 163/60
[2021-01-26 06:20] LABS: ABSOLUTE NEUTROPHILS 2.8 thou/uL (1.4-8.2); EOSINOPHILS 3.5 % (0.0-3.0); WBC 5.1 thou/uL (4.0-11.0)
[2021-01-26 06:21] LABS: BASOPHILS 0.6 % (0.0-2.0); HEMATOCRIT 27.9 % (37.0-47.0); LYMPHOCYTES 33.7 % (24.0-44.0); MCH 31.6 pg (26.0-34.0); MCV 95.8 fL (80.0-100.0); POLYS 55.2 % (36.0-66.0); RBC 2.91 mil/uL (4.20-5.00)
[2021-01-26 06:24] LABS: HEMOGLOBIN 9.2 gm/dL (12.0-15.0)
[2021-01-26 06:32] LABS: CALCIUM 8.5 mg/dL (8.5-10.1); CREATININE 1.4 mg/dL (0.6-1.0); MAGNESIUM 1.8 mg/dL (1.8-2.4); PHOSPHORUS 3.2 mg/dL (2.6-4.7)
[2021-01-26 06:34] LABS: POTASSIUM 4.5 mmol/L (3.5-5.1)
--- NOTE | 2021-01-26 06:59 | NUR ---
PT RESTING QUIETLY. NO S/S DISTRESS VSS AFEBRILE. NO C/O PAIN. PROGRESSING WELL TOWARDS D/C GOALSD.
[2021-01-26 07:20] VITALS: BP 132/68
[2021-01-26 08:39] LABS: PLATELET COUNT 33 thou/uL (150-400); PLATELET ESTIMATE MARKEDLY DECREASED
[2021-01-26 11:06] VITALS: BP 134/52
--- NOTE | 2021-01-26 12:45 | NUR ---
SW reviewed chart and spoke with nursing and attending physician. Pt is progressing towards goals for discharge to SNF. SW faxed updates to [facility]. GIORGIO left voice message for Karissa in admissions. GIORGIO is following to assist as needed with discharge planning.
--- NOTE | 2021-01-26 15:59 | NUR ---
PT WAS UP IN CHAIR WITH THERAPY FOR A COUPLE OF HOURS. BACK IN BED. WARM BLANKETS PLACED PER PT REQUEST. CALL LIGHT AND TABLE IN REACH. FALL PRECAUTIONS IN PLACE. DENIES ANY NEEDS AT MOMENT.
[2021-01-26 16:07] VITALS: BP 139/56
[2021-01-26 19:30] VITALS: BP 130/50
--- NOTE | 2021-01-27 01:04 | NUR ---
PT PROGRESSING SLOWLY TOWARDS D/C GOALS. VSS AFEBRILE. INC OF URINE. MOISTURE BARRIER CREAM APPLIED. RIGHT FOREARM SKIN TEAR NOTED. PT STATED HAPPENED IN THE AFTERNOON WHEN IV WAS REMOVED. PICTURE TAKEN AND WOUND CLEANED AND DRESSED WITH FOAM DRESSING. NO S/S DISTRESS. SB-SR ON MONITOR.
[2021-01-27 03:44] VITALS: BP 126/69
--- NOTE | 2021-01-27 05:52 | NUR ---
PT RESTING QUIETLY. NO S/S DISTRESS.
[2021-01-27 07:22] VITALS: BP 144/53
--- NOTE | 2021-01-27 11:23 | NUR ---
GIORGIO reviewed chart and spoke with nursing and attending physician. Pt remains in Enhanced Isolation due to COVID. Pt is afebrile and not requiring O2. GIORGIO spoke with Karissa, in admissions at [facility]. Awaiting input from administration as to when they would be able to accept pt due to COVID isolation precautions. Director of Case Mgmt spoke with the facility environmental technician. GIORGIO placed call to pt's room. No answer. GIORGIO spoke with pt's son, Juan Antonio, via phone to provide update. Juan Antonio is aware and agreeable with discharge plan. GIORGIO is following to assist as needed with discharge planning.
--- NOTE | 2021-01-27 11:57 | 2DMMODE ---
[facility] [place] [address] 2 D/M-MODE ECHOCARDIOGRAM Name: RUBENERICKA B Room #: 350-P ADM IN M.R.#: [id number] Admission: 01/21/21 Attend Phys: Marylou Grimaldo Discharge: Date of : 32 Report #: [id number] THIS REPORT FOR: cc: GILBERT NOVOA Physician not on staff Narciso Arias MD ~ APPROVED REPORT Study performed: 01/27/2021 11:17:46 EXAM: Limited 2D, Doppler, and color-flow Echocardiogram Patient Location: Bedside Room #: 350 Status: routine BSA: 1.58 HR: 59 bpm BP: 126/69 mmHg Rhythm: NSR Other Information Study Quality: Adequate Indications CHF follow up. COVID-19 + Hx: COPD, Cardiomyopathy. 2D Dimensions IVSd: 12.76 (7-11mm) LVOT Diam: 18.52 (18-24mm) LVDd: 42.80 mm PWd: 12.45 (7-11mm) LVDs: 28.51 (25-40mm) Aortic Root: 31.80 mm Aortic Valve AoV Peak Carlos.: 2.08 m/s AO Peak Gr.: 17.30 mmHg LVOT Max P.72 mmHg AO Mean Gr.: 8.59 mmHg AO V2 Mean: 1.37 m/s LVOT Max V: 1.20 m/s AO V2 VTI: 45.60 cm BOBO Vmax: 1.55 cm2 Mitral Valve E/A Ratio: 0.6 MV Decel. Time: 240.10 ms MV E Max Carlos.: 0.81 m/s [facility] [address] [place] [address] 2 D/M-MODE ECHOCARDIOGRAM Name: DILCIA MIRANDAJORIE Murali Room #: 350-P [facility] IN [facility]#: [id number] Admission: 01/21/21 Attend Phys: Marylou Diop Discharge: Date of : 32 Report #: [id number] MV A Carlos.: 1.46 m/s MV PHT: 69.63 ms Tricuspid Valve TR Peak Carlos.: 2.48 m/s RAP Estimate: 5.00 mmHg TR Peak Gr.: 25.00 mmHg PA Pressure: 30.00 mmHg Left Ventricle The left ventricle is normal size. There is normal LV segmental wall motion. Mild concentric left ventricular hypertrophy. Left ventricular systolic function is normal. LVEF is 60-65%. Mild diastolic dysfunction is present (impaired relaxation pattern). Right Ventricle The right ventricle is normal size. The right ventricular systolic function is normal. Atria Left atrium is dilated. The right atrium size is normal. Aortic Valve Aortic valve is calcified. No aortic regurgitation is present. There is mild valvular aortic stenosis. Calculated aortic valve area is 1.5 cm2 with maximum pressure gradient of 17 mmHg and mean pressure gradient of 9 mmHg. Mitral Valve Mitral valve leaflets are thickened. Heavily calcified annulus. Mild mitral regurgitation. No evidence of mitral valve stenosis. Tricuspid Valve The tricuspid valve is normal in structure. Mild tricuspid regurgitation. Estimated PAP 30mmHg. Pulmonic Valve The pulmonary valve is normal in structure. Trace pulmonic regurgitation. Great Vessels The aortic root is normal in size. IVC is normal in size and collapses >50% with inspiration. Pericardium [facility] [address] [place] [address] 2 D/M-MODE ECHOCARDIOGRAM Name: DILCIA MIRANDAJORIE Room #: 350-P [facility] IN M.R.#: [id number] Admission: 01/21/21 Attend Phys: Marylou Diop Discharge: Date of : 32 Report #: [id number] There is no pericardial effusion. <Conclusion> The left ventricle is normal size. LVEF is 60-65%. Left atrium is dilated. Aortic valve is calcified. No aortic regurgitation is present. There is mild valvular aortic stenosis. Calculated aortic valve area is 1.5 cm2 with maximum pressure gradient of 17 mmHg and mean pressure gradient of 9 mmHg. Mitral valve leaflets are thickened. Heavily calcified annulus. Mild mitral regurgitation. The tricuspid valve is normal in structure. Mild tricuspid regurgitation. Estimated PAP 30mmHg. The pulmonary valve is normal in structure. Trace pulmonic regurgitation. The aortic root is normal in size. There is no pericardial effusion. <ELECTRONICALLY SIGNED> By: Narciso Arias MD 01/27/21 1156 1156 1156 Narciso Arias MD /INF
[2021-01-27 15:24] VITALS: BP 149/51
[2021-01-27 20:35] VITALS: BP 181/59
[2021-01-28 03:58] VITALS: BP 154/67
--- NOTE | 2021-01-28 05:47 | NUR ---
PT MAKING SLOW PROGRESS TOWARDS GOAL. PT IN BED THROUGHOUT THE SHIFT. DENIED ANY COMPLAINTS. DID STATE THAT SHE IS HOPING TO GET TO REHAB SOON.
[2021-01-28 08:39] VITALS: BP 166/61
--- NOTE | 2021-01-28 13:10 | NUR ---
GIORGIO reviewed chart and spoke with nursing and attending physician. Pt is progressing towards goals for discharge. GIORGIO discussed case with PT and attending physician, who state that pt is safe to discharge home with HH. GIORGIO spoke with pt via phone to discuss going home with HH. Pt is agreeable and states she is ready to go home. SW provided options for HH agencies. No preference voiced. Pt is unsure of her dtr's address. Pt recently moved in with her dtr, Nidia. GIORGIO spoke with Nidia via phone to provide update and discuss discharge plan. Nidia states that pt is not able to return to her home. Per Nidia, she is unable to provide care to pt and states that pt would need to go to a custodial. Nidia requested SW contact her brother, Juan Antonio, and let him figure things out. Nidia states she is also sick with COVID. GIORGIO spoke with pt's son, Juan Antonio, via phone to provide update. Juan Antonio was unaware of pt not being able to return to Nidia's home. GIORGIO discussed alternate options for discharge disposition: home with another family member with HH or SNF placement. Pt's son states that pt can come stay with him, but he needs some time to move pt's belongings into his home. Pt's son states he will be able to provide transportation home. Plan is for pt to discharge home tomorrow with HH. capacity planner to fax HH referral. GIORGIO updated pt's nurse and attending physician. GIORGIO is following to assist as needed with discharge planning.
--- NOTE | 2021-01-28 13:52 | NUR ---
PT ALERT AND ORIENTED X4, [place] AT TIMES. DENIES ANY PAIN, NAUSEA AND VOMITTING. PT IS ON ROOM AIR, NO SIGNS OF DISTRESS NOTED. ASSESSMENTAND VITAL SIGNS STABLE. PT IS UP IN THE CHAIR, FALL PRECAUTIONS IN PLACE. ANTICIPATING FOR D/C TOMORROW. WILL COTNINUE TO MONITOR
--- NOTE | 2021-01-28 14:08 | NUR ---
Nutrition: Pt admitted with COVID, UTI. Seen due to LOS. PMH, labs, meds reviewed. Missing several days of intake records other than 01/26 where po recorded as 10-20% of meals. Nsg confirms po today approx. 10%. S/w pt over the phone and she reports not having her dentures and inability to eat some things. Currently on soft diet. RD suggested mechanically altered ground or pureed diet consistencies and pt refused. Reports wanting soups. Assisted with ordering meals. Refuses ensure, states drink it at home and does not want it here. Will trial ensure pudding/magic cup instead. Admit weight 123#. current weight 128#. No loss over admit. Plan to D/C tomorrow.
--- NOTE | 2021-01-28 15:37 | NUR ---
FAXED REFERRAL TO [facility] SPOKE WITH OLIVIA IN ADM THEY DO NOT HAVE A NURSE THAT IS COVERING [place] RIGHT NOW SO THEY CANNOT ACCEPT. FAXED REFERRAL TO [facility] SPOKE WITH BROOKE IN INTAKE THEY DO NOT COVER [place].
--- NOTE | 2021-01-28 16:20 | NUR ---
FAXED REFERRAL TO [facility] HH SPOKE WITH JAMES IN INTAKE THEY DO NOT COVER [place],GIOVANNA FAXED REFERRAL TO [facility] HH SPOKE WITH SULEMA IN INTAKE THEY DO NOT COVER [place]
[2021-01-28 19:04] VITALS: BP 139/50
[2021-01-29 03:15] VITALS: BP 152/70
--- NOTE | 2021-01-29 06:36 | NUR ---
PT MAKING SLOW PROGRESS TOWARDS GOALS. PT STATING THAT SHE IS LOOKING FORWARD TO GOING HOME. IN BED THROUGHOUT THE NIGHT. DAY RN REPORTING PT IS UP WITH STEADY GAIT AND ONE PERSON ASSIST.
[2021-01-29 07:26] VITALS: BP 152/70
--- NOTE | 2021-01-29 11:02 | NUR ---
PT CARE TAKEN OVER THIS AM, PT ALERT AND ORIENTED X4, NOATAK. PT DENIES ANY PAIN, NAUSEA AND VOMITTING. ON ROOM AIR, NO SIGNS OF DISTRESS NOTED. ASSESSMENT AND VITAL SIGNS COMPLTED. ANTICIPATING FOR D/C WITH HOME HEALTH TODAY, PT EXCITED TO GO HOME. FALL PRECAUTIONS IN PLACE. WILL CONTINUE TO MONITOR.
[2021-01-29] MEDS ORDERED: VITAMIN C1000 MG PO (12:31)
[2021-01-29] MEDS ORDERED: VITAMIN D325 MC1 PO (12:31)
[2021-01-29] MEDS ORDERED: COREG6.25 MG PO (12:31)
[2021-01-29] MEDS ORDERED: FOLIC ACID1 MG PO (12:31)
[2021-01-29] MEDS ORDERED: PROTONIX 20 MG20 M1 PO (12:31)
[2021-01-29] MEDS ORDERED: VITAMIN B-1100 M2 PO (12:31)
[2021-01-29] MEDS ORDERED: ATORVASTATIN CA10 MG PO (12:31)
[2021-01-29] MEDS ORDERED: ZINC SULFATE50 MG PO (12:31)
[2021-01-29] MEDS ORDERED: NORVASC5 MG PO (12:31)
[2021-01-29 15:14] VITALS: BP 152/70
--- NOTE | 2021-01-29 15:28 | NUR ---
DISCHARGE NOTE: GIORGIO reviewed chart and spoke with nursing and attending physician. Pt is medically stable for discharge home with her son today with services. SW spoke with pt via phone to provide update and discuss discharge. Pt is agreeable with discharge plan. GIORGIO spoke with pt's son, Juan Antonio, via phone. Obtained Juan Antonio's address, where pt will be staying. Multiple agencies all declined HH referral due to either location or insurance ([facility] , [facility] , [facility] , [facility] , [facility] , [facility] , [facility] , [facility] , [facility], [facility] , [facility] , [facility] , [facility] , [facility] , and [facility] ). [facility] is able to accept pt and will contact pt/family to arrange first HH visit. SW faxed [facility] finalized discharge orders/summary. Contact info placed in pt's discharge summary. Nursing to contact pt's son when pt is ready for discharge. Pt's son to provide transportation home. No additional SW needs identified at this time, but is available to assist should needs arise.
[2021-01-29 16:45] VITALS: BP 152/70
[2021-01-29 17:06] VITALS: BP 168/73
[2021-01-29 17:41] VITALS: BP 168/73
== END 2021-01-29 18:28 | disposition home health service (06) | DRG 682 ==
LOC: 3W 06:27
PROVIDERS: Hospitalist; Internal Medicine; ADMIT Hospitalist; ATTEND Hospitalist
DX: N17.0 Acute kidney failure with tubular necrosis (principal); U07.1 COVID-19; K92.0 Hematemesis; N39.0 Urinary tract infection, site not specified; I13.0 Hypertensive heart and chronic kidney disease with heart failure and stage 1 through stage 4 chronic kidney disease, or unspecified chronic kidney disease; E87.5 Hyperkalemia; D69.6 Thrombocytopenia, unspecified; I25.10 Atherosclerotic heart disease of native coronary artery without angina pectoris; I25.5 Ischemic cardiomyopathy; J44.9 Chronic obstructive pulmonary disease, unspecified; M19.90 Unspecified osteoarthritis, unspecified site; E05.90 Thyrotoxicosis, unspecified without thyrotoxic crisis or storm; E11.22 Type 2 diabetes mellitus with diabetic chronic kidney disease; N18.30 Chronic kidney disease, stage 3 unspecified; E86.0 Dehydration; E78.5 Hyperlipidemia, unspecified; K21.9 Gastro-esophageal reflux disease without esophagitis; E53.8 Deficiency of other specified B group vitamins; Z66 Do not resuscitate; E05.00 Thyrotoxicosis with diffuse goiter without thyrotoxic crisis or storm; Z90.49 Acquired absence of other specified parts of digestive tract; Z98.49 Cataract extraction status, unspecified eye; Z79.82 Long term (current) use of aspirin; Z79.899 Other long term (current) drug therapy; Z80.0 Family history of malignant neoplasm of digestive organs
CPT/HCPCS: 10879